=== PATIENT | male | born 1945 | race Caucasian/White ===

== ENCOUNTER 2020-11-04 09:26 | Outpatient (CLI) | payer BC, SELFPAY ==
[2020-11-04 12:10] LABS: Anion Gap 10.4 mmol/L (3-11); BUN 43 mg/dL (7-18); CO2 24.6 mmol/L (21.0-32.0); CREATININE 1.8 mg/dL (0.70-1.30); Calcium 9.2 mg/dL (8.5-10.1); Chloride 106 mmol/L (98-107); Estimated GFR 37.07 (mL/min/1.73m2); Glucose 115 mg/dL (74-106); Potassium 4.4 mmol/L (3.5-5.1); Sodium 141 mmol/L (136-145)
== END 2020-11-04 09:27 | disposition home or self-care (01) ==
LOC: LBO 09:27
PROVIDERS: PCP Neuromusculoskeletal Medicine & OMM; Visit Provider Urology
DX: N40.1 Benign prostatic hyperplasia with lower urinary tract symptoms (principal); R35.1 Nocturia
CPT/HCPCS: 80048

== ENCOUNTER 2020-12-24 18:42 | Outpatient (REF) | payer BC, SELFPAY ==
[2020-12-24 17:02] LABS: Anion Gap 10.1 mmol/L (3-11); BUN 37 mg/dL (7-18); CO2 24.9 mmol/L (21.0-32.0); Calcium 8.9 mg/dL (8.5-10.1); Chloride 108 mmol/L (98-107); Estimated GFR 32.82 (mL/min/1.73m2); Glucose 101 mg/dL (74-106); Potassium 4.1 mmol/L (3.5-5.1); Sodium 143 mmol/L (136-145)
== END 2020-12-24 18:43 | disposition home or self-care (01) ==
LOC: LBN 18:42
PROVIDERS: PCP Neuromusculoskeletal Medicine & OMM; Visit Provider Urology
DX: R79.89 Other specified abnormal findings of blood chemistry (principal); R35.0 Frequency of micturition; R35.1 Nocturia; R39.15 Urgency of urination; N40.1 Benign prostatic hyperplasia with lower urinary tract symptoms
CPT/HCPCS: 80048

== ENCOUNTER 2021-03-07 01:35 | Outpatient (CLI) | payer BC, SELFPAY ==
[2021-03-07 12:29] LABS: Source Nasal/Nares
[2021-03-07 15:00] LABS: COVID-19 PCR Negative (Negative)
== END 2021-03-07 01:36 | disposition home or self-care (01) ==
LOC: LBO 01:35
PROVIDERS: PCP Neuromusculoskeletal Medicine & OMM; Visit Provider Urology
DX: Z20.822 Contact with and (suspected) exposure to COVID-19 (principal); Z01.818 Encounter for other preprocedural examination
CPT/HCPCS: 87635

== ENCOUNTER 2021-03-10 07:51 | Day surgery (SDC) | payer BC, SELFPAY ==
--- NOTE | 2021-03-10 06:26 | W.ANESPRE ---
General Info Date of Service Date Performed: 03/10/21 Height: 6 ft 2 in Weight: 83.915 kg Body Mass Index (BMI): 23.7 Surgical Procedure: Operation Date: 03/10/21 10:10 Proposed Procedures Side Surgeon p Cystoscopy/Transurethral Injection Botox Chris Snyder MD Meds Allergies and Home Medications Allergies Allergy/AdvReac Type Severity Reaction Status Date / Time No Known Allergies Allergy Unverified 03/10/21 08:11 Home Medication Medication Instructions Recorded lorazepam 2 mg PO DAILY PRN PRN tab-cap 01/19/13 multivitamin 1 cap PO DAILY 06/29/16 amlodipine 10 mg PO DAILY tab-cap 02/15/18 aspirin 81 mg PO DAILY tab-cap 02/15/18 chlorthalidone 50 mg PO DAILY tab-cap 02/15/18 ferrous sulfate [Iron] 325 mg PO DAILY 02/15/18 pot,sodium citrate-citric acid 10 ml PO BID #1 bottle 02/15/18 [Cytra-3 Syrup] tadalafil 5 mg tablet 5 mg PO DAILY #90 tab 05/28/20 ascorbic acid (vitamin C) 500 mg 500 mg PO QID cap 06/27/20 capsule atorvastatin 40 mg tablet 40 mg PO DAILY 03/07/21 cyanocobalamin (vitamin B-12) 1,000 mcg PO DAILY 03/07/21 1,000 mcg capsule folic acid 1 mg tablet 1 mg PO DAILY 03/07/21 losartan 50 mg tablet 100 mg PO DAILY tab 03/07/21 metformin 500 mg tablet 500 mg PO DAILY 03/07/21 metoprolol succinate 200 mg 200 mg PO DAILY 03/07/21 tablet,extended release 24 hr omeprazole 20 mg capsule,delayed 40 mg PO DAILY cap 03/07/21 release thiamine HCl (vitamin B1) 100 mg 100 mg PO DAILY 03/07/21 tablet vitamins A,C,C-xiwf-vozfmp 7,160 2 tab PO DAILY tab 03/07/21 unit-113 mg-100 unit tablet Current Visit Medications: Current Medications Generic Name Dose Route Start Last Admin Trade Name Freq PRN Reason Stop Dose Admin OnabotulinumtoxinA 100 units/ 0 units 03/10/21 06:00 Sodium Chloride 20 ml IJ 03/10/21 18:00 DIRECTED JUANJO Ringer's Solution 1,000 mls @ 80 mls/hr 03/10/21 06:00 IV 07/12/21 23:59 INFUSION JUANJO Cefazolin Sodium/Dextrose 1 gm in 50 mls @ 100 mls/hr 03/10/21 06:00 Ancef Duplex IVPB 03/10/21 18:00 PREOP JUANJO IV Miscellaneous Supplies 1 each 03/10/21 06:00 Iv Access IV 03/10/21 23:59 DIRECTED JUANJO Sodium Chloride 0 ml 03/10/21 06:00 Normal Saline Flush 10 Ml Syr IV 03/10/21 23:59 PRN PRN Sodium Chloride 0 ml 03/10/21 06:00 Normal Saline 10 Ml Vial IJ 03/10/21 23:59 DIRECTED PRN Sterile Water 0 ml 03/10/21 06:00 Water,Injection,Sterile 10 Ml Vial IJ 03/10/21 23:59 DIRECTED PRN PFSH Active Problems Active Problems: Problem Status Onset Code Sensorineural hearing loss (SNHL) of right ear with restricted hearing of left ear H90.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 Tinnitus, left H93.12 Benign paroxysmal positional vertigo H81.10 Asymmetrical sensorineural hearing loss H90.5 Central perforation of tympanic membrane, left ear H72.02 Urinary urgency R39.15 BPH associated with nocturia N40.1, R35.1 Frequency of micturition R35.0 Ureteral stone with hydronephrosis N13.2 Medical History Medical History BPH associated with nocturia Depression Diabetes mellitus, type 2 Frequency of micturition Gastroesophageal reflux disease History of hypertension Urinary urgency Surgical History Surgical History (Updated 03/10/21 @ 08:10 by Prudence Malagon) Aortic valve replaced Appendectomy Colonoscopy - IV Sedation (06/29/16) 2011-[facility] Hx of CABG Open Carpal Tunnel release Tobacco Smoking/Tobacco Use Status: Former Tobacco Use Substance Use Substance use: Never Vital Signs and Lab Results Vital Signs Most Recent Vital Signs in EMR: Temp Pulse Resp BP Pulse Ox 36.2 C L 77 18 181/94 H 100 03/10/21 08:05 03/10/21 08:05 03/10/21 08:05 03/10/21 08:05 07/12/21 08:05 Lab Results Blood Type / Crossmatch: No Data to Display Complete Blood Count: No Data to Display Complete Metabolic Panel: No Data to Display Liver Function Panel: No Data to Display Coagulation Panel: No Data to Display Cardiac Panel: No Data to Display Arterial Blood Gas: No Data to Display Venous Blood Gas: No Data to Display Pancreas Panel: No Data to Display Thyroid Panel: No Data to Display Infectious Disease: Coronavirus (COVID-19)(PCR) Negative (Negative) 03/07/21 11:28 03/07/21 Coronavirus 2019 Source Nasal/Nares 03/07/21 11:28 03/07/21 Blood Cultures: No Data to Display Toxicology Panel: No Data to Display Imaging and Studies Imaging and Studies Echocardiogram Summary: 2017: 70% EF, mild MR, 10 mm Hg gradient across prosthetic valve. Carotid Artery Summary:: 09/2020: right 16-49%, left 50-69% stenosis. Anesthesia Assessment and Plan Anesthesia History Personal History: No History of Anesthesia Complications Family History: No Family History of Anesthesia Complications Exercise Tolerance Exercise Tolerance: Metabolic Equivalents>4 Cardiac & Pulmonary Exam Cardiac Exam: Normal S1/S2 Heart Sounds Pulmonary Exam: Clear Bilateral Breath Sounds Airway Exam Known Difficult Airway: No Mallampati Class: 3 Mouth Opening: Normal (> 3cm) Thyromental Distance: Greater than 3 cm Neck Range of Motion: Limited ROM and Other (Pain with minimal extention, and left turning. ) Neck Circumference: Normal Teeth Condition: Normal Dentition ASA Classification ASA Score: ASA 3 Emergency Case?: No NPO Status NPO Status: NPO Clears >2 hours, Solids >8 hours Anesthesia Plan Resuscitation Status: Full Code Anesthesia Technique: General Anesthesia Airway Planned: Natural Airway Monitors Used: Standard Monitors Preoperative Comments:: 75 yo M for urinary urgency and placement of Botox. History of AVR and CABG 2017 and is doing well, and carotid stenosis that is being medically managed. poor neck mobility with pain on movement. Plan natural airway vs LMA.
--- NOTE | 2021-03-10 06:42 | W.ANESPOSTOP ---
Postoperative Evaluation Date, Time and Location Date Performed: 03/10/21 Time Performed: 11:16 Patient Location: Day Surgery Unit Vital Signs Most Recent Manually Entered Vital Signs: Adult Blood Pressure: 119/61 Heart Rate: 76 Respirations: 18 Oxygen Saturation (%): 100 Temperature (C): 36.2 C Pain Score (0-10 Scale): 0 Assessment Mental Status: Awake (Alert & Oriented to Patient Baseline) Airway and Respiratory Function: Patent airway with normal (patient baseline) respiratory exam Cardiovascular Function: Hemodynamically Stable Hydration Status: Adequately Hydrated Nausea & Vomiting: No Nausea or Vomiting Pain: Pt. Denies Any Pain Peripheral Nerve Block: Patient did not receive a nerve block
[2021-03-10 08:05] VITALS: BP 181/94; PULSE 77; RESP 18; TEMP 36.2; O2SAT 100
[2021-03-10] MEDS: Lactated Ringers 1,000 ML 80 ML IV (08:55)
--- NOTE | 2021-03-10 10:02 | W.PM.HP.N ---
Date of service: 03/10/21 Time of Service: 10:02 Assessment and Plan Assessment and plan (1) Frequency of micturition: Status: Acute (2) Urinary urgency: Status: Acute Assessment and plan: He has failed oral medical therapy. He presents for an injection of Botox into the detrusor. History of Present Illness History of Present Illness Chief Complaint: Urinary frequency Narrative: This is a 75-year-old gentleman who has a history of urinary frequency, urgency and incontinence. He voids every 1-2 hours at night. He has failed alpha blockers, anticholinergics and beta 3 agonists. We even tried DDAVP for his nocturia with no significant improvement. We did urodynamics which showed uninhibited bladder contractions at a very low bladder volume. He presents for Botox injections into the detrusor. Review of Systems Narrative: No fevers or chills Decreased hearing acuity. No vision change or dysphasia No diabetes or thyroid No shortness of breath, cough or hemoptysis No chest pain or palpitations Hx GERD. No nausea, vomiting, hepatitis, ulcers, jaundice No seizures, strokes or peripheral neuropathy Bleeds easily, low platelet count Pain in neck, left sided head pain. No gout PFSH Medical History BPH associated with nocturia Depression Diabetes mellitus, type 2 Frequency of micturition Gastroesophageal reflux disease History of hypertension Urinary urgency Surgical History (Updated 03/10/21 @ 08:10 by Prudence Malagon) Aortic valve replaced Appendectomy Colonoscopy - IV Sedation (06/29/16) 2011-[place] Hx of CABG Open Carpal Tunnel release Social History Smoking/Tobacco Use Status: Former Tobacco Use Smoking risk assessment performed?: Yes Alcohol Intake: current Alcohol Intake frequency: 0-2 drinks per day Alcohol type: beer Drug use: Never Do you feel safe at home: Yes Do you feel safe in your relationship?: Yes Meds Allergies and Home Medications Allergies Allergy/AdvReac Type Severity Reaction Status Date / Time No Known Allergies Allergy Unverified 03/10/21 08:11 Home Medications Medication Instructions Recorded Confirmed Type lorazepam 2 mg PO DAILY PRN PRN tab-cap 01/19/13 03/10/21 History multivitamin 1 cap PO DAILY 06/29/16 12/24/20 History amlodipine 10 mg PO DAILY tab-cap 02/15/18 03/10/21 History aspirin 81 mg PO DAILY tab-cap 02/15/18 03/10/21 History chlorthalidone 50 mg PO DAILY tab-cap 02/15/18 03/10/21 History ferrous sulfate [Iron] 325 mg PO DAILY 02/15/18 03/10/21 History pot,sodium citrate-citric acid 10 ml PO BID #1 bottle 02/15/18 03/10/21 Rx [Cytra-3 Syrup] tadalafil 5 mg tablet 5 mg PO DAILY #90 tab 05/28/20 03/10/21 Rx ascorbic acid (vitamin C) 500 mg 500 mg PO QID cap 06/27/20 03/10/21 History capsule atorvastatin 40 mg tablet 40 mg PO DAILY 03/07/21 03/10/21 History cyanocobalamin (vitamin B-12) 1,000 mcg PO DAILY 03/07/21 03/10/21 History 1,000 mcg capsule folic acid 1 mg tablet 1 mg PO DAILY 03/07/21 03/10/21 History losartan 50 mg tablet 100 mg PO DAILY tab 03/07/21 03/10/21 History metformin 500 mg tablet 500 mg PO DAILY 03/07/21 03/10/21 History metoprolol succinate 200 mg 200 mg PO DAILY 03/07/21 03/10/21 History tablet,extended release 24 hr omeprazole 20 mg capsule,delayed 40 mg PO DAILY cap 03/07/21 03/10/21 History release thiamine HCl (vitamin B1) 100 mg 100 mg PO DAILY 03/07/21 03/10/21 History tablet vitamins A,C,T-hokl-qptvri 7,160 2 tab PO DAILY tab 03/07/21 03/10/21 History unit-113 mg-100 unit tablet Exam Const General: cooperative and no acute distress Neck Neck: supple Resp Effort & Inspection: normal respiratory effort Auscultation: clear to auscultation bilaterally Cardio Rate: regular rate Rhythm: regular rhythm Neuro General: patient alert, patient awake and patient oriented x3 Results Last Vital Signs Temp 36.2 C L 03/10/21 08:05 Pulse 77 03/10/21 08:05 Resp 18 03/10/21 08:05 BP 181/94 H 03/10/21 08:05 Pulse Ox 100 03/10/21 08:05
[2021-03-10 10:25] VITALS: BMI 23.7
[2021-03-10] MEDS: ceFAZolin 1 GM/50 ML BAG IVPB (10:50)
[2021-03-10] MEDS: Lidocaine 2% Jelly 6 ML SYR (11:01)
--- NOTE | 2021-03-10 11:09 | W.PM.DSUDISC ---
Discharge Plan Disposition Patient Disposition: HOME Condition: Stable Discharge Details Reason For Visit: urgency incontinence Attending Provider: Chris Snyder Primary Care Provider: Rudy Lombardo Covington Meds and New Rx's Prescriptions: No Action tadalafil [Cialis] 5 mg tablet 5 mg PO DAILY Qty: 90 RF: 4 ascorbic acid (vitamin C) 500 mg capsule 500 mg PO QID RF: 0 lorazepam 1 MG tablet 2 mg PO DAILY PRN PRNRF: 0 chlorthalidone 50 MG tablet 50 mg PO DAILY RF: 0 amlodipine 10 MG tablet 10 mg PO DAILY RF: 0 ferrous sulfate [Iron (ferrous sulfate)] 325 MG tablet 325 mg PO DAILY RF: 0 aspirin 81 MG tablet,chewable 81 mg PO DAILY RF: 0 pot,sodium citrate-citric acid [Cytra-3] 473 ML solution 10 ml PO BID Qty: 1 RF: 12 metformin 500 mg tablet 500 mg PO DAILY RF: 0 metoprolol succinate 200 mg tablet extended release 24 hr 200 mg PO DAILY RF: 0 PreserVision AREDS 7,160 unit- 113 mg-100 unit tablet 2 tab PO DAILY RF: 0 losartan 50 mg tablet 100 mg PO DAILY RF: 0 atorvastatin 40 mg tablet 40 mg PO DAILY RF: 0 omeprazole 20 mg capsule,delayed release(DR/EC) 40 mg PO DAILY RF: 0 folic acid 1 mg tablet 1 mg PO DAILY RF: 0 cyanocobalamin (vitamin B-12) 1,000 mcg capsule 1,000 mcg PO DAILY RF: 0 thiamine HCl (vitamin B1) 100 mg tablet 100 mg PO DAILY RF: 0 multivitamin 1 EACH capsule 1 cap PO DAILY RF: 0 Discharge Instructions Additional Instructions: no appointment needed, but ask pt to call us in @ 1 week with progress report Activity:: Activity as Tolerated Shower/Bathe:: 24 hours Diet:: As Tolerated Discharge Orders Discharge Orders: Discharge Order (Routine); Ordered 03/10/21 Ordered By: Chris Snyder DS: Diagnosis Discharge Diagnosis (1) Frequency of micturition: Status: Acute (2) Urinary urgency: Status: Acute
--- NOTE | 2021-03-10 11:12 | ROE_ITS ---
Date of service: 03/10/21 Time of Service: 11:12 Operative Note Operative Note DATE OF PROCEDURE: 03/10/21 PRE-OP DIAGNOSIS: Urgency incontinence PROCEDURE: cystoscopy with transurethral injection of Botox into detrusor muscle SURGEON: Chris Snyder ANESTHESIA TYPE: Local By Surgeon and General:No Airway Refer to Anesthesia Record ESTIMATED BLOOD LOSS: 5 PATHOLOGY: none sent COMPLICATIONS: None Patient was transported to: same day Patient's condition: stable Indications: This is a 75-year-old gentleman who has a history of urinary frequency, urgency and urgency incontinence. We did a urodynamic study which demonstrated uninhibited bladder contractions at a low infused volume. He has failed anticholinergic and beta 3 agonists. He presents for an injection of [place] tox. Findings: Trabeculated bladder with multiple diverticuli Procedure Description: The patient was given a dose of preop antibiotics. He was brought to the operating room on 03/10/2021. After successful induction of general anesthesia without intubation, he was placed in the dorsal lithotomy position. His genitalia was prepped and draped. 2% Xylocaine jelly was instilled into the urethra to act as a local anesthetic. A 20 [place] urethrotome sheath was passed through the urethra into the bladder. We then utilized a working element and a 30 degree lens to inject a total of 100 units of Botox mixed in 20 mL of fluid into the detrusor muscle. We injected into the posterior bladder wall. We utilized 20 injection sites with a grid of 4 vertical rows and 5 horizontal injection sites in each row. The bladder appeared heavily trabeculated with a few [place] diverticuli present. No papillary or nodular lesions were seen. The prostate showed some mild lateral lobe enlargement but no significant median lobe. Once the injections were completed, the bladder was emptied and the cystoscope was removed.
[2021-03-10 11:17] VITALS: BP 119/61; PULSE 76; RESP 16; RESP 18; TEMP 36.8; TEMPC 36.2; O2SAT 100
[2021-03-10 11:46] VITALS: BP 169/79; PULSE 65; RESP 16; TEMP 36.6; O2SAT 99
[2021-03-10] MEDS: Phenazopyridine 200 MG TAB PO (12:03)
== END 2021-03-10 12:30 | disposition home or self-care (01) ==
PROVIDERS: PCP Neuromusculoskeletal Medicine & OMM; Visit Provider Urology
PROC: (CPT 52287; principal; 2021-03-10 10:00)
DX: R39.15 Urgency of urination (principal); N40.0 Benign prostatic hyperplasia without lower urinary tract symptoms; E11.9 Type 2 diabetes mellitus without complications; K21.9 Gastro-esophageal reflux disease without esophagitis
CPT/HCPCS: 52287; J0585; J0690; J1100; J2001; J2370; J2405